=== PATIENT | female | born 1955 | race African-American/Black ===

== ENCOUNTER 2016-07-21 16:29 | Emergency (ER) | payer OTHER ==
[~2016-07-21] VITALS: Ht 162.6 cm; Wt 127.0 kg
[~2016-07-21 16:29] MED LIST: ALBUTEROL SULF8.5 GM INH; ALPRAZOLAM0.25 MG ORAL; AMBIEN10 M1 ORAL; AMBIEN5 MG ORAL; AMLODIPINE-BEN1 EACH PO; ATIVAN1 MG ORAL; ATIVAN1 MG PO; ATIVAN2 MG ORAL; ATORVASTATIN CA80 MG ORAL; BENAZEPRIL HCL10 MG ORAL; CIPRO500 MG PO; CIPROFLOXACIN500 M2 ORAL; COLACE100 MG ORAL; CYCLOBENZAPRINE10 MG ORAL; DICLOFENAC SODI75 MG ORAL; DIOVAN80 MG ORAL; DIPHENHYDRAMINE25 M1 ORAL; FEOSOL1 TAB; FLAGYL500 MG ORAL; FUROSEMIDE40 MG; FUROSEMIDE80 M1 ORAL; GUAIFENESIN-CO118 M1 ORAL; HYDROCODON-ACE1 EA15; HYDROCODON-ACE1 EA16; IBUPROFEN600 MG ORAL; KLOR-CON 88 MEQ PO; LASIX40 MG PO; LOTREL5 CAP/10 C ORAL; METFORMIN HCL500 M1 ORAL; METOPROLOL SUCC50 MG ORAL; METRONIDAZOLE500 MG ORAL; NAPROXEN500 M2; NKM; NORCO 5-325 TA1 EAC1 ORAL; NORCO 5-325 TA1 EACH ORAL; OMEPRAZOLE20 MG PO; OMEPRAZOLE40 M1 ORAL; PANTOPRAZOLE SO40 MG ORAL; PERCOCET 5-3251 EACH ORAL; PROMETHAZINE-D118 ML; PROZAC20 MG PO; RANITIDINE HCL150 MG ORAL; TRAMADOL HCL50 MG ORAL; TRAZODONE HCL50 MG ORAL; UNOBMED; ZITHROMAX250 MG ORAL; ZOFRAN ODT4 MG ORAL; ZOFRAN4 MG ORAL; ZOLPIDEM TARTRA10 MG
[2016-07-21] MEDS ORDERED: PROAIR HFA8.5 GM INH (17:13)
[2016-07-21] MEDS ORDERED: QVAR7.3 GM INH (17:13)
[2016-07-21] MEDS ORDERED: ALPRAZOLAM1 MG ORAL (17:13)
[2016-07-21] MEDS ORDERED: DICLOFENAC SODI50 MG ORAL (17:13)
[2016-07-21] MEDS ORDERED: Ketorolac 60mg Inj IM ONE (17:15)
[2016-07-21 17:30] VITALS: BP 152/109
--- NOTE | 2016-07-21 20:06 | Emergency Room Report ---
History of Present Illness General Chief Complaint: Pain Source: Patient Present Illness HPI 61 y/o female c/o medication refill. States she has anxiety which she takes Xanax 1mg with good compliance w/o AE. States she ran out of her medication and her anxiety has been getting worse. Additionally, patient complains of chronic bilateral knee pain that improves with Diclofenac which she takes with good compliance w/o AE and is asking for refills. Patient also states she was admitted for SOB 1 month ago and discharged with albuterol inhaler which she has had to use 5 times a week since being discharged. States she has not follow up with her PCP and that she takes BB for her HTN. Denies any active CP, SOB, n/ v/f/c, DAVISON, SI, HI, AH or VH. Allergies: Coded Allergies: NO KNOWN ALLERGIES (Unverified Allergy, Unknown, 11/01/15) Patient History Past Medical History: see triage record Pertinent Family History: none Now: No Immunizations: other Reviewed Nursing Documentation: PMH: Agreed, PSxH: Agreed Nursing Documentation-PMH Past Medical History: No History, Except For Hx Cardiac Problems: Yes - angina Hx Hypertension: Yes Hx Asthma: Yes Hx Diabetes: Yes Hx Cancer: No Hx Gastrointestinal Problems: Yes - diverticulitis Hx Neurological Problems: No Review of Systems All Other Systems: negative except mentioned in HPI Physical Exam Vital Signs Date Time Temp Pulse Resp B/P Pulse Ox O2 Delivery O2 Flow Rate FiO2 07/21/16 16:38 97.5 71 15 142/82 98 Room Air Sp02 EP Interpretation: reviewed General Appearance: no apparent distress, alert, GCS 15, non-toxic Head: normocephalic, atraumatic Eyes: bilateral eye PERRL, bilateral eye normal inspection ENT: hearing grossly normal, normal pharynx, no angioedema, normal voice Neck: full range of motion, supple/symm/no masses Respiratory: chest non-tender, lungs clear, normal breath sounds, speaking full sentences Cardiovascular #1: regular rate, rhythm, no edema Cardiovascular #2: 2+ dorsalis pedis (R), 2+ dorsalis pedis (L) Musculoskeletal: back normal, gait/station normal, normal range of motion, non- tender, no calf tenderness, calf tenderness Neurologic: alert, oriented x3, responsive, motor strength/tone normal, sensory intact, speech normal Psychiatric: judgement/insight normal, memory normal, mood/affect normal, no suicidal/homicidal ideation Reflexes: 3+ knee (R), 3+ knee (L) Skin: normal color, no rash, warm/dry, well hydrated Lymphatic: no adenopathy Medical Decision Making PA Attestation Dr. Grove is my supervising physician with whom patient management has been discussed with. Diagnostic Impression: Primary Impression: Asthma due to seasonal allergies Additional Impressions: Insomnia secondary to anxiety Chronic pain of both knees Depression with anxiety ER Course Pt. presents to the ED c/o medication refill Ddx considered but are not limited to chronic knee pain, asthma, anxiety with depression Vital signs: are WNL, pt. is afebrile H&PE are most consistent with chronic knee pain, asthma and anxiety with depression ORDERS: none required at this time, the diagnosis is clinical ED INTERVENTIONS: None required at this time. DISCHARGE: At this time pt. is stable for d/c to home. Will provide printed patient care instructions, and any necessary prescriptions. Care plan and follow up instructions have been discussed with the patient prior to discharge. Last Vital Signs Date Time Temp Pulse Resp B/P Pulse Ox O2 Delivery O2 Flow Rate FiO2 07/21/16 16:38 97.5 71 15 142/82 98 Room Air Status: unchanged Disposition: HOME, SELF-CARE Condition: Stable Scripts Alprazolam* (XANAX*) 1 Mg Tablet 1 MG ORAL QHS Y for For Anxiety for 10 Days, #10 TAB Prov: SABNOLA,TAMEEM P.A. 07/21/16 Beclomethasone Dipropionate 40MCG Oral Inh (QVAR 40*) 7.3 Gm Aer.w.adap 2 PUFFS INH TWICE A DAY for 30 Days, #1 GM 0 Refills Prov: SABRY,TAMEEM P.A. 07/21/16 Albuterol Sulfate* (PROAIR HFA*) 8.5 Gm Hfa.aer.ad 2 PUFFS INH Q6H, #8.5 GM 0 Refills Prov: SABRY,TAMEEM P.A. 07/21/16 Diclofenac Sod* (VOLTAREN*) 50 Mg Tablet.dr 50 MG ORAL THREE TIMES A DAY for 14 Days, #30 TAB Prov: SABRY,TAMEEM P.A. 07/21/16 Referrals: NON PHYSICIAN (PCP) JOE CHOE Jul 21, 2016 20:06
== END 2016-07-21 17:30 | disposition home or self-care (01) ==
LOC: EMR 17:00
DX: F32.9 Major depressive disorder, single episode, unspecified (principal); F51.05 Insomnia due to other mental disorder; F41.9 Anxiety disorder, unspecified; J45.909 Unspecified asthma, uncomplicated; G89.29 Other chronic pain; M25.562 Pain in left knee; M25.561 Pain in right knee; I10 Essential (primary) hypertension; E11.9 Type 2 diabetes mellitus without complications; K57.90 Diverticulosis of intestine, part unspecified, without perforation or abscess without bleeding
CPT/HCPCS: 96372; 99283

== ENCOUNTER 2017-01-15 13:39 | Emergency (ER) | payer OTHER ==
[~2017-01-15] VITALS: Ht 158.8 cm; Wt 136.1 kg
[~2017-01-15 13:39] MED LIST changes: +ALPRAZOLAM1 MG ORAL; +DICLOFENAC SODI50 MG ORAL; +PROAIR HFA8.5 GM INH; +QVAR7.3 GM INH
[2017-01-15] MEDS ORDERED: Furosemide 40mg tab ORAL ONE (14:30)
[2017-01-15] MEDS ORDERED: Ketorolac 30mg Inj IM ONE (14:30)
[2017-01-15] MEDS ORDERED: Morphine Sulfate 4mg/ml Inj IM ONE (14:30)
--- NOTE | 2017-01-15 14:33 | Emergency Room Report ---
History of Present Illness General Chief Complaint: General Complaint Source: Patient Present Illness HPI Patient is a 61-year-old female presented after increased lower extremity pain and swelling. Patient gradual onset of symptoms. Patient had reportedly have been poorly compliant with her diuretics. The patient had prior history of morbid obesity. Patient had been using Lasix intermittently as well as potassium. The patient stated that she had recently increased her weight. She denied any shortness of breath. She denied any chest pain. She denied having any fever. She reported increased pain worse with ambulation. Allergies: Coded Allergies: NO KNOWN ALLERGIES (Unverified Allergy, Unknown, 11/01/15) Patient History Past Medical History: see triage record Reviewed Nursing Documentation: PMH: Agreed, PSxH: Agreed Nursing Documentation-PMH Hx Cardiac Problems: Yes - angina Hx Hypertension: Yes Hx Asthma: Yes Hx Diabetes: Yes Hx Cancer: No Hx Gastrointestinal Problems: Yes - diverticulitis Hx Neurological Problems: No Review of Systems All Other Systems: negative except mentioned in HPI Physical Exam Vital Signs Date Time Temp Pulse Resp B/P Pulse Ox O2 Delivery O2 Flow Rate FiO2 01/15/17 14:07 97.5 89 18 156/106 96 Room Air Sp02 EP Interpretation: reviewed, normal General Appearance: normal inspection, well appearing, no apparent distress, alert, GCS 15, obese Head: atraumatic ENT: normal ENT inspection, hearing grossly normal, normal voice Neck: normal inspection, full range of motion, supple, no bony tend Respiratory: normal inspection, lungs clear, normal breath sounds, no respiratory distress, no retraction, no wheezing Cardiovascular #1: regular rate, rhythm, edema Gastrointestinal: normal inspection, normal bowel sounds, non tender, soft, no guarding, no hernia Genitourinary: no CVA tenderness Musculoskeletal: normal inspection, back normal, normal range of motion, decreased range of motion, swelling Neurologic: normal inspection, alert, oriented x3, responsive, bindery production manager III-XII nml as tested, motor strength/tone normal, speech normal Psychiatric: normal inspection, judgement/insight normal, mood/affect normal Skin: normal inspection, normal color, no rash Medical Decision Making Diagnostic Impression: Primary Impression: Chronic pain Additional Impressions: Chronic pain of both knees Morbid obesity ER Course Patient presented for knee pain. Differential diagnosis include but was not limited to arthritis, peripheral vascular disease, dependent edema, cellulitis among others. Patient's benign exam and does not appear to require any further imaging or laboratory testing at this time Last Vital Signs Date Time Temp Pulse Resp B/P Pulse Ox O2 Delivery O2 Flow Rate FiO2 01/15/17 14:07 97.5 89 18 156/106 96 Room Air Isidoro Grove Jan 15, 2017 14:32
[2017-01-15] MEDS ORDERED: FUROSEMIDE40 MG ORAL (15:18)
[2017-01-15 15:22] VITALS: BP 156/106
[2017-01-15] MEDS ORDERED: KLOR-CON 88 MEQ PO (15:23)
[2017-01-15 15:43] VITALS: BP 151/98
== END 2017-01-15 15:51 | disposition home or self-care (01) ==
LOC: EMR 14:40
DX: G89.29 Other chronic pain (principal); M25.562 Pain in left knee; M25.561 Pain in right knee; I10 Essential (primary) hypertension; J45.909 Unspecified asthma, uncomplicated; E11.9 Type 2 diabetes mellitus without complications; K57.90 Diverticulosis of intestine, part unspecified, without perforation or abscess without bleeding; E66.01 Morbid (severe) obesity due to excess calories; Z68.43 Body mass index [BMI] 50.0-59.9, adult
CPT/HCPCS: 96372; 99283; J1885; J2270

== ENCOUNTER 2017-01-23 21:59 | Emergency (ER) | payer OTHER ==
[~2017-01-23] VITALS: Ht 157.5 cm; Wt 131.5 kg
[~2017-01-23 21:59] MED LIST changes: +FUROSEMIDE40 MG ORAL
[2017-01-23] MEDS ORDERED: Morphine Sulfate 4mg/ml Inj IM ONE (22:45)
[2017-01-23] MEDS ORDERED: NORCO 5-325 TA1 EACH ORAL (22:49)
[2017-01-23] MEDS ORDERED: FUROSEMIDE40 MG ORAL (23:15)
[2017-01-23 23:24] VITALS: BP 155/70
--- NOTE | 2017-01-26 19:20 | Emergency Room Report ---
History of Present Illness General Chief Complaint: Pain Source: Patient Present Illness HPI 61-year-old female presents ED complaining of bilateral leg pain and swelling of one week. Patient states she has history of peripheral edema and takes Lasix. Admits to taking medication inconsistently. Patient states pain is 10 out of 10, throbbing, radiating down both legs. Denies chest pain or shortness of breath. Patient states she is unable to walk however patient did walk into the emergency room today. No other aggravating relieving factors. Denies any other specific symptoms Allergies: Coded Allergies: NO KNOWN ALLERGIES (Unverified Allergy, Unknown, 11/01/15) Patient History Past Medical History: DM, HTN, asthma, diverticulitis Past Surgical History: none Pertinent Family History: none Social History: Denies: alcohol use, drug use, smoking Last Menstrual Period: NONE Now: No Immunizations: UTD Reviewed Nursing Documentation: PMH: Agreed, PSxH: Agreed Nursing Documentation-PMH Hx Hypertension: Yes Hx Asthma: Yes Hx Diabetes: Yes Hx Cancer: No Hx Gastrointestinal Problems: Yes - diverticulitis Hx Neurological Problems: No Review of Systems All Other Systems: negative except mentioned in HPI Physical Exam Vital Signs Date Time Temp Pulse Resp B/P Pulse Ox O2 Delivery O2 Flow Rate FiO2 01/23/17 22:12 98.1 101 20 153/76 97 Room Air Sp02 EP Interpretation: reviewed, normal General Appearance: no apparent distress, alert, GCS 15, non-toxic, obese Head: normocephalic Eyes: bilateral eye PERRL, bilateral eye normal inspection ENT: normal ENT inspection Neck: normal inspection Respiratory: normal inspection Cardiovascular #1: normal inspection Gastrointestinal: normal inspection Rectal: deferred Genitourinary: no CVA tenderness Musculoskeletal: swelling - 1+ pitting edema b/l LE Neurologic: alert, oriented x3, responsive, motor strength/tone normal, sensory intact, speech normal Skin: normal inspection Lymphatic: normal inspection Medical Decision Making Diagnostic Impression: Primary Impression: Peripheral edema Additional Impression: Chronic pain Qualified Codes: G89.29 - Other chronic pain ER Course 61-year-old female presents ED complaining of bilateral leg pain and swelling. Diagnoses-CHF, peripheral edema, cellulitis Patient placed in stretcher. After initial history physical exam reveals an obese female no acute distress. There is 1+ pitting edema in bilateral lower extremities. Lungs are clear. Patient is showing no signs of shortness of breath. Vital stable. Reviewed EMR. Patient has been here in the past for similar presentation of peripheral edema, noncompliant with her Lasix Encouraged patient to continue Lasix as directed. Followup with PMD if dosing adjustments are required. I offered patient pain medication. Patient stated only Dilaudid will take care of this pain. Given chronicity of pain I do not believe Dilaudid is warranted, given the situation. I explained this to the patient. Patient became very upset. I offered the patient morphine which she accepted. Patient will get a refill of her Lasix which she says she does not have In review of CURES; patient does not have any narcotic prescriptions filled in the last several months Diagnosis-peripheral edema, chronic pain Stable and discharged to home prescription for Lasix and [place]. Followup with PMD. Return to ED if symptoms recur or worsen Last Vital Signs Date Time Temp Pulse Resp B/P Pulse Ox O2 Delivery O2 Flow Rate FiO2 01/23/17 23:24 98.1 90 20 155/70 97 Room Air Status: improved Disposition: HOME, SELF-CARE Condition: Stable Scripts Furosemide* (LASIX*) 40 Mg Tablet 40 MG ORAL DAILY, #30 TAB Prov: PRAVEEN MARIE M.D. 01/23/17 Hydrocodone Bit/Acetaminophen 5-325* (NORCO 5-325*) 1 Each Tablet 1 TAB ORAL Q6H Y for For Pain, #10 TAB 0 Refills Prov: PRAVEEN MARIE M.D. 01/23/17 Patient Instructions: Peripheral Edema PRAVEEN MARIE M.D. Jan 26, 2017 19:20
== END 2017-01-23 23:29 | disposition home or self-care (01) ==
LOC: EMR 22:24
DX: R60.0 Localized edema (principal); G89.29 Other chronic pain; M79.605 Pain in left leg; M79.604 Pain in right leg; I10 Essential (primary) hypertension; E11.9 Type 2 diabetes mellitus without complications; J45.909 Unspecified asthma, uncomplicated
CPT/HCPCS: 96372; 99284; J2270

== ENCOUNTER 2017-04-13 14:28 | Emergency (ER) | payer OTHER ==
[~2017-04-13] VITALS: Ht 162.6 cm; Wt 130.6 kg
--- NOTE | 2017-04-13 14:55 | Emergency Room Report ---
History of Present Illness General Chief Complaint: Lower Extremity Injury Source: Patient, EMS Present Illness HPI -year-old female history of hypertension diabetes chronic knee pain, presenting with bilateral knee pain for 3 days. Patient states that pain has become a lot worse, now causing her to fall on her knees. Denies any head trauma or LOC. Patient states that she has chronic swelling to legs, takes 80 mg of Lasix, which she skipped a few doses. Patient states that she was using [place] for pain , but has run out. Patient has not seen a pain specialist Patient was here for similar complaints in January Allergies: Coded Allergies: NO KNOWN ALLERGIES (Unverified Allergy, Unknown, 11/01/15) Patient History Past Medical History: see triage record Past Surgical History: none Pertinent Family History: none Last Menstrual Period: na Reviewed Nursing Documentation: PMH: Agreed, PSxH: Agreed Nursing Documentation-PMH Past Medical History: No History, Except For Hx Hypertension: Yes Hx Asthma: Yes Hx Diabetes: Yes Hx Cancer: No Hx Gastrointestinal Problems: Yes - diverticulitis Hx Neurological Problems: No Review of Systems All Other Systems: negative except mentioned in HPI Physical Exam Vital Signs Date Time Temp Pulse Resp B/P (MAP) Pulse Ox O2 Delivery O2 Flow Rate FiO2 04/13/17 14:23 98.4 73 18 181/91 98 Room Air Sp02 EP Interpretation: reviewed, normal General Appearance: normal inspection, well appearing, no apparent distress, alert, GCS 15, non-toxic Head: normocephalic, atraumatic Eyes: bilateral eye normal inspection, bilateral eye PERRL, bilateral eye EOMI ENT: normal ENT inspection, normal pharynx, normal voice, moist mucus membranes Neck: normal inspection, full range of motion, supple Respiratory: normal inspection, lungs clear, normal breath sounds, no respiratory distress, no retraction, no wheezing, speaking full sentences, chest symmetrical Cardiovascular #1: normal inspection, regular rate, rhythm, no edema, normal capillary refill Cardiovascular #2: 2+ radial (R), 2+ radial (L) Gastrointestinal: normal inspection, non tender, soft, non-distended, no guarding Musculoskeletal: other - Bilateral knee tenderness, no gross bony deformities, no effusion, no redness, full range of passive motion, 2+ pitting edema. no calf tenderness Neurologic: normal inspection, alert, oriented x3, responsive, motor strength/ tone normal, sensory intact, normal gait, speech normal Psychiatric: normal inspection, judgement/insight normal, memory normal Skin: normal inspection, normal color, no rash, warm/dry, well hydrated, normal turgor Medical Decision Making Diagnostic Impression: Primary Impression: Chronic pain of both knees ER Course 51-year-old female with chronic knee pain presenting with chronic knee pain. DDX: Arthritis, low suspicion for fracture Plan: Pain control, x-rays ER course: Patient has remained stable during ED stay. Disposition: Patient is to be discharged to home. Patient is instructed to follow up with their primary care doctor within 5 days. Patient is instructed to follow up with [ ] within 3 days. Strict return precautions discussed with patient such as fever, chills, worsening/severe pain, nausea, vomiting, which may indicate severe illness. Patient verbalizes understanding and agrees with plan. Please note that this Emergency Department Report was dictated using [employer] rental technician technology software, occasionally this can lead to erroneous entry secondary to interpretation by the dictation equipment Other X-Ray Diagnostic Results Other X-Ray Diagnostic Results #1: X-Ray ordered: R knee # of Views/Limited Vs Complete: 3 View Indication: Pain EP Interpretation: Yes Interpretation: no dislocation, no soft tissue swelling, no fractures, other - +chronic degen changes Impression: Other - Chronic degenerative changes Electronically Signed by: Electronically signed by Tatianna Leon MD Other X-Ray Diagnostic Results #2: X-Ray ordered: L knee # of Views/Limited Vs Complete: 3 View Indication: Pain Interpretation: no dislocation, no soft tissue swelling Impression: Other - Chronic degenerative changes Electronically Signed by: Electronically signed by Tatianna Leon MD Last Vital Signs Date Time Temp Pulse Resp B/P (MAP) Pulse Ox O2 Delivery O2 Flow Rate FiO2 04/13/17 14:23 98.4 73 18 181/91 98 Room Air Disposition: HOME, SELF-CARE Condition: Improved Scripts Ibuprofen* (MOTRIN*) 600 Mg Tablet 600 MG ORAL Q8H Y for For Pain, #30 TAB 0 Refills Prov: Tatianna Leon M.D. 04/13/17 Hydrocodone Bit/Acetaminophen 5-325* (NORCO 5-325*) 1 Each Tablet 1 TAB ORAL Q4H Y for For Pain, #6 TAB 0 Refills Prov: Tatianna Leon M.D. 04/13/17 Additional Instructions: Please followup with her primary care within 5 days Please followup with a pain specialist within one week Tatianna Leon M.D. Apr 13, 2017 14:55
[2017-04-13] MEDS ORDERED: NORCO 5-325 TA1 EACH ORAL (15:42)
[2017-04-13] MEDS ORDERED: IBUPROFEN600 MG ORAL (15:42)
[2017-04-13 15:57] VITALS: BP 129/93
[2017-04-13 16:15] VITALS: BP 129/93
--- NOTE | 2017-04-14 11:01 | Diagnostic Imaging Report ---
Indication: Pain 3 views of the right knee were obtained. Findings: There is narrowing of the medial compartment and patellofemoral compartment with osteophyte formation. No fracture distally seen. No joint effusion appreciated. Impression: Moderate osteoarthritis
--- NOTE | 2017-04-14 11:03 | Diagnostic Imaging Report ---
Indication: Pain 3 views of the left knee were obtained. Findings: There is joint space narrowing with osteophyte formation. No obvious fracture or joint effusion identified. The views are suboptimal. Bones are osteopenic. Impression: Osteoarthritis
== END 2017-04-13 16:24 | disposition home or self-care (01) ==
LOC: EDBD 14:28 → EMR 14:55
DX: M17.0 Bilateral primary osteoarthritis of knee (principal); I10 Essential (primary) hypertension; J45.909 Unspecified asthma, uncomplicated; E11.9 Type 2 diabetes mellitus without complications
CPT/HCPCS: 99284

== ENCOUNTER 2017-07-01 14:19 | Emergency (ER) | payer OTHER ==
[~2017-07-01] VITALS: Ht 162.6 cm; Wt 128.4 kg
--- NOTE | 2017-07-01 14:32 | Emergency Room Report ---
History of Present Illness General Chief Complaint: Chest Pain Source: Patient Present Illness HPI 62-year-old female presents with chest pain and last night Left side, worse with walking, worse with movement History of CHF, compliant with Lasix denies recent URI, cough, fever or chills No history of asthma or COPD, nonsmoker Didn't take any medication for pain Jun 2016 test: CTA negative for PE EF 64% Allergies: Coded Allergies: NO KNOWN ALLERGIES (Unverified Allergy, Unknown, 11/01/15) Patient History Past Medical History: see triage record, old chart reviewed Past Surgical History: none Pertinent Family History: none Social History: Denies: smoking, alcohol use, drug use Last Menstrual Period: menopause Now: No Immunizations: UTD Reviewed Nursing Documentation: PMH: Agreed, PSxH: Agreed Nursing Documentation-PMH Past Medical History: No History, Except For Hx Hypertension: Yes Hx Asthma: Yes Hx Diabetes: Yes Hx Cancer: No Hx Gastrointestinal Problems: Yes - diverticulitis Hx Neurological Problems: No Review of Systems All Other Systems: negative except mentioned in HPI Physical Exam Vital Signs Date Time Temp Pulse Resp B/P (MAP) Pulse Ox O2 Delivery O2 Flow Rate FiO2 07/01/17 14:28 97.9 74 21 170/93 98 Room Air Sp02 EP Interpretation: reviewed, normal General Appearance: normal inspection, well appearing, no apparent distress, alert, GCS 15, non-toxic, obese Head: normocephalic, atraumatic Eyes: bilateral eye PERRL, bilateral eye EOMI ENT: normal ENT inspection, hearing grossly normal, normal pharynx, no angioedema, normal voice, TMs + canals normal, uvula midline, moist mucus membranes Neck: normal inspection, full range of motion, supple, thyroid normal, no meningismus, no bony tend Respiratory: normal inspection, lungs clear, normal breath sounds, no rhonchi, no respiratory distress, no retraction, no accessory muscle use, no wheezing, speaking full sentences, other - Reproducible chest pain to palpation, chest symmetrical Cardiovascular #1: regular rate, rhythm, no edema, no JVD, normal capillary refill Gastrointestinal: normal inspection, normal bowel sounds, non tender, soft, no mass, no peritonitis, non-distended, no guarding, no hernia, no pulsatile mass Genitourinary: no CVA tenderness Musculoskeletal: normal inspection, back normal, normal range of motion, no calf tenderness, pelvis stable, Theresa's Sign negative Neurologic: normal inspection, alert, oriented x3, responsive, stock layer III-XII nml as tested, motor strength/tone normal, cerebellar normal, normal gait, speech normal Psychiatric: normal inspection, judgement/insight normal, mood/affect normal, no suicidal/homicidal ideation, no delusions Skin: normal inspection, normal color, no rash Lymphatic: normal inspection, no adenopathy Medical Decision Making Diagnostic Impression: Primary Impression: Chest pain Qualified Codes: R07.9 - Chest pain, unspecified ER Course Chest x-ray unchanged from June 2016 troponin 0.248 ECG non ischemic given aspirin in ER Endorsed to Dr Mccormack for tele admit for ACS rule out at 509pm EKG Diagnostic Results Rate: normal Rhythm: NSR ST Segments: no acute changes ASA given to the pt in ED: Yes Rhythm Strip Diag. Results EP Interpretation: yes Rate: 71 Rhythm: NSR, no PVC's, no ectopy Chest X-Ray Diagnostic Results Chest X-Ray Diagnostic Results : Chest X-Ray Ordered: Yes # of Views/Limited/Complete: 1 View Indication: Chest Pain EP Interpretation: Yes Interpretation: no consolidation, no effusion, no pneumothorax, other - Cardiomegaly Electronically Signed by: Dr Sheyla Tracey MD Last Vital Signs Date Time Temp Pulse Resp B/P (MAP) Pulse Ox O2 Delivery O2 Flow Rate FiO2 07/01/17 14:28 97.9 74 21 170/93 98 Room Air Status: improved Disposition: ADMITTED INPATIENT Condition: Serious SHEYLA TRACEY M.D. Jul 01, 2017 14:32
[2017-07-01 15:25] LABS: BASOPHILS % (AUTO) 1.3 % (0.0-2.0); EOSINOPHILS % (AUTO) 1.8 % (0.0-3.0); LYMPHOCYTES % (AUTO) 39.5 % (20.0-45.0); MEAN CORPUSCULAR HEMOGLOBIN 27.7 PG (27.0-31.0); MEAN CORPUSCULAR HGB CONC 30.8 G/DL (32.0-36.0); MEAN CORPUSCULAR VOLUME 90 FL (80-99); MEAN PLATELET VOLUME 7.9 FL (6.5-10.1); MONOCYTES % (AUTO) 7.8 % (1.0-10.0); NEUTROPHILS % (AUTO) 49.6 % (45.0-75.0); PLATELET COUNT 334 K/UL (150-450); RED CELL DISTRIBUTION WIDTH 16.1 % (11.6-14.8); WHITE BLOOD COUNT 10.6 K/UL (4.8-10.8)
[2017-07-01 15:30] VITALS: BP 166/87
[2017-07-01 15:46] LABS: ANION GAP 7 mmol/L (5-15); CALCIUM 9.4 MG/DL (8.5-10.1); CARBON DIOXIDE 29 MMOL/L (21-32); CHLORIDE 104 MMOL/L (98-107); GLOMERULAR FILTRATION RATE > 60 mL/min (>60); POTASSIUM 3.9 MMOL/L (3.5-5.1); SODIUM 140 MMOL/L (136-145)
[2017-07-01 15:55] LABS: ALANINE AMINOTRANSFERASE 19 U/L (12-78); ALBUMIN/GLOBULIN RATIO 0.8 (1.0-2.7); ASPARTATE AMINO TRANSFERASE 16 U/L (15-37); CKMB 1.3 NG/ML (0.0-3.6); TOTAL PROTEIN 8.3 G/DL (6.4-8.2)
[2017-07-01] MEDS ORDERED: Tylenol #3 tab (300mg/30mg) ORAL ONE (16:15)
--- NOTE | 2017-07-01 17:24 | Diagnostic Imaging Report ---
Indication: Reason For Exam: PAIN Technique: One view of the chest Comparison: 06/20/2016 Findings: The heart remains enlarged. Better inspiration currently. The lungs and pleural spaces are clear Impression: Cardiomegaly. No acute process
[2017-07-01 18:00] VITALS: BP 189/97
[2017-07-01] MEDS ORDERED: Norco 5mg/325mg tab ORAL ONE (18:15)
[2017-07-01] MEDS ORDERED: CALCIUM500 M2 PO (18:18)
[2017-07-01] MEDS ORDERED: DICLOFENAC SODI50 MG ORAL (18:18)
[2017-07-01] MEDS ORDERED: VENTOLIN HFA18 GM INH ×2 (18:18→18:19)
[2017-07-01] MEDS ORDERED: Ketorolac 30mg Inj ONE (19:33)
[2017-07-01 19:41] VITALS: BP 189/97
[2017-07-01] MEDS ORDERED: Ketorolac 30mg Inj IV ONE (19:45)
--- NOTE | 2017-07-02 16:59 | Cardiology Report ---
APPROVED REPORT EKG Measurement Heart [id number] Normal sinus rhythm Anterior infarct, age undetermined Abnormal ECG
== END 2017-07-01 19:41 | disposition home or self-care (01) ==
LOC: EMR 15:00 → EDBEDREQ 16:25 → EMR 19:41
DX: I11.0 Hypertensive heart disease with heart failure (principal); I50.9 Heart failure, unspecified; Z79.899 Other long term (current) drug therapy; E11.9 Type 2 diabetes mellitus without complications; J45.909 Unspecified asthma, uncomplicated
CPT/HCPCS: 36415; 71010; 80053; 80307; 82550; 82553; 83880; 84484; 85025; 93005; 99285; J1885

== ENCOUNTER 2017-07-31 11:42 | Emergency (ER) | payer OTHER ==
[~2017-07-31] VITALS: Ht 157.5 cm; Wt 130.6 kg
[2017-07-31 11:41] VITALS: BP 182/101
[~2017-07-31 11:42] MED LIST changes: +CALCIUM500 M2 PO; +VENTOLIN HFA18 GM INH
[2017-07-31] MEDS ORDERED: Solu-MEDROL 125mg Inj IVP ONE (12:00)
[2017-07-31] MEDS ORDERED: Ipratropium 0.02% Inh Soln 2.5ml UD HHN ONE (12:00)
[2017-07-31] MEDS: Albuterol ud Inhalation HHN SCH ×6 (12:03→13:03)
[2017-07-31 12:37] LABS: BASOPHILS % (AUTO) 1.4 % (0.0-2.0); HEMATOCRIT 35.5 % (37.0-47.0); HEMOGLOBIN 10.8 G/DL (12.0-16.0); MEAN CORPUSCULAR VOLUME 88 FL (80-99); MONOCYTES % (AUTO) 4.7 % (1.0-10.0); NEUTROPHILS % (AUTO) 38.9 % (45.0-75.0); PLATELET COUNT 276 K/UL (150-450); RED BLOOD COUNT 4.04 M/UL (4.20-5.40); RED CELL DISTRIBUTION WIDTH 15.3 % (11.6-14.8); WHITE BLOOD COUNT 13.7 K/UL (4.8-10.8)
--- NOTE | 2017-07-31 12:43 | Emergency Room Report ---
History of Present Illness General Chief Complaint: Dyspnea/Respdistress Source: Patient, EMS Present Illness HPI 62-year-old female with history of asthma, p/w SOB for 2-3 days. SOB occurs both at rest and on exertion. + non productive cough. Denies chest pain. Pt states that this episode is similar to other episodes of asthma exacerbation. Denies fever, chills. Denies sick contacts or recent travel. Patient denies history of ICU admissions, intubations, or usage of BIPAP for asthma. Denies history of PE/DVT, no recent surgeries, prolonged immobilization, malignancy, or use of OCPs/HRT. Allergies: Coded Allergies: No Known Allergies (Unverified , 07/31/17) Patient History Past Medical History: see triage record Past Surgical History: none Pertinent Family History: none Reviewed Nursing Documentation: PMH: Agreed, PSxH: Agreed Nursing Documentation-PMH Past Medical History: No History, Except For Hx Hypertension: Yes Hx COPD: Yes Review of Systems All Other Systems: negative except mentioned in HPI Physical Exam Vital Signs Date Time Temp Pulse Resp B/P (MAP) Pulse Ox O2 Delivery O2 Flow Rate FiO2 07/31/17 11:37 86 32 07/31/17 11:37 97.0 182/101 92 Nasal Cannula 2.0 07/31/17 12:08 28 Sp02 EP Interpretation: reviewed, normal General Appearance: alert, GCS 15, non-toxic, moderate distress Head: normocephalic, atraumatic Eyes: bilateral eye normal inspection, bilateral eye PERRL, bilateral eye EOMI ENT: normal ENT inspection, normal pharynx, normal voice, moist mucus membranes Neck: normal inspection, full range of motion, supple Respiratory: respiratory distress, wheezing Cardiovascular #1: normal inspection, regular rate, rhythm, no edema, normal capillary refill Cardiovascular #2: 2+ radial (R), 2+ radial (L) Gastrointestinal: normal inspection, non tender, soft, non-distended, no guarding Musculoskeletal: normal inspection, back normal, normal range of motion, non- tender Neurologic: normal inspection, alert, oriented x3, responsive, motor strength/ tone normal, sensory intact, normal gait, speech normal Psychiatric: normal inspection, judgement/insight normal, memory normal Skin: normal inspection, normal color, no rash, warm/dry, well hydrated, normal turgor Procedures Critical Care Time Critical Care Time 40 minutes of CC time 62-year-old female with shortness of breath VS: Tachypnea, hypoxic PLAN: IV access, labs, nebulizer, steroids, magnesium Anticipate admission to Tele vs. JG CC time also includes review of labs, review of EMR, discussion with family and paperwork from SNF, d/w hospitalist CC could include dosing of pressors, additional Abx CC time does not include procedures Medical Decision Making Diagnostic Impression: Primary Impression: Asthma exacerbation Additional Impressions: Pneumonia CHF (congestive heart failure) Elevated troponin ER Course 62-year-old female with history of asthma p/w SOB DDX: Asthma exacerbation, pneumonia, upper respiratory infection/viral syndrome Versus ACS/CHF PE is unlikely given other likely diagnoses which is more likely in this patients given clinical scenario and physical examination. Furthermore, there is no history of DVT/PE. No risk factors such as OCPs, prolonged immobilizations , recent surgeries, hypercoagulability. Plan: Combivent nebulizer treatment x 3, steroids, EKG, CXR If patient's condition minimally improves/worsens will require IV access and blood work. Possible IV medications such as magnesium sulfate, continuous albuterol, BIPAP. ER Course: Patient's respiratory status has been closely monitored in the ED. Patient has been treated with combivent x 3, steroids. IV magnesium sulfate Repeat lung auscultation reveals persistent wheezing. mildly elevated trop - likely from CHF. aspirin given 40mg lasix given for chf Disposition: Patient will be transferred to outside hospital due to insurance purposes she is stable for transfer DW Dr Alfonso who has accepted patient for xfer Please note that this Emergency Department Report was dictated using [employer] rock taper technology software, occasionally this can lead to erroneous entry secondary to interpretation by the dictation equipment. EKG Diagnostic Results EP Interpretation: Yes Rate: normal Rhythm: NSR ST Segments: No acute changes ASA given to patient: No Rhythm Strip EP Interpretation: Yes Rate: 70 Rhythm: NSR, no PVCs, no ectopy Chest X-ray CXR: Ordered: Yes 1 view Indication: SOB EP interpretation: Yes Interpretation: Cardiomegaly, cannot fully evaluate lung bases, possible right- sided infiltrate versus pulmonary vascular congestion Impression: See above Electronically signed by Tatianna Leon MD Laboratory Tests Test 07/31/17 12:15 07/31/17 12:47 07/31/17 13:10 White Blood Count 13.7 K/UL (4.8-10.8) H Red Blood Count 4.04 M/UL (4.20-5.40) L Hemoglobin 10.8 G/DL (12.0-16.0) L Hematocrit 35.5 % (37.0-47.0) L Mean Corpuscular Volume 88 FL (80-99) Mean Corpuscular Hemoglobin 26.8 PG (27.0-31.0) L Mean Corpuscular Hemoglobin Concent 30.6 G/DL (32.0-36.0) L Red Cell Distribution Width 15.3 % (11.6-14.8) H Platelet Count 276 K/UL (150-450) Mean Platelet Volume 8.8 FL (6.5-10.1) Neutrophils (%) (Auto) 38.9 % (45.0-75.0) L Lymphocytes (%) (Auto) 53.0 % (20.0-45.0) H Monocytes (%) (Auto) 4.7 % (1.0-10.0) Eosinophils (%) (Auto) 2.0 % (0.0-3.0) Basophils (%) (Auto) 1.4 % (0.0-2.0) Urine Color Yellow Urine Appearance Clear Urine pH 6 (4.5-8.0) Urine Specific [place] 1.015 (1.005-1.035) Urine Protein 2+ (NEGATIVE) H Urine Glucose (UA) Negative (NEGATIVE) Urine Ketones Negative (NEGATIVE) Urine Occult Blood 1+ (NEGATIVE) H Urine Nitrite Negative (NEGATIVE) Urine Bilirubin Negative (NEGATIVE) Urine Urobilinogen Normal MG/DL (0.0-1.0) Urine Leukocyte Esterase Negative (NEGATIVE) Urine RBC 0-2 /HPF (0 - 2) Urine WBC 0-2 /HPF (0 - 2) Urine Squamous Epithelial Cells Few /LPF (NONE/OCC) Urine Bacteria Few /HPF (NONE) Sodium Level 140 MMOL/L (136-145) Potassium Level 3.8 MMOL/L (3.5-5.1) Chloride Level 104 MMOL/L (98-107) Carbon Dioxide Level 31 MMOL/L (21-32) Anion Gap 6 mmol/L (5-15) Blood Urea Nitrogen 16 mg/dL (7-18) Creatinine 1.0 MG/DL (0.55-1.30) Estimate Glomerular Filtration Rate > 60 mL/min (>60) Glucose Level 138 MG/DL (74-106) H Calcium Level 9.4 MG/DL (8.5-10.1) Total Bilirubin 0.5 MG/DL (0.2-1.0) Aspartate Amino Transferase (AST) 22 U/L (15-37) Alanine Aminotransferase (ALT) 25 U/L (12-78) Alkaline Phosphatase 97 U/L (46-116) Troponin I 0.269 ng/mL (0.000-0.056) Pro-B-Type Natriuretic Peptide 1793 pg/mL (0-125) H Total Protein 7.9 G/DL (6.4-8.2) Albumin 3.4 G/DL (3.4-5.0) Globulin 4.5 g/dL Albumin/Globulin Ratio 0.8 (1.0-2.7) L Last Vital Signs Date Time Temp Pulse Resp B/P (MAP) Pulse Ox O2 Delivery O2 Flow Rate FiO2 07/31/17 12:39 86 26 100 Nasal Cannula 2.0 28 07/31/17 11:41 182/101 07/31/17 11:37 97.0 Disposition: XFER SHT-TRM HOSP Condition: Serious Scripts Unable to Obtain Active Prescriptions or Reported Meds Referrals: [facility],REFERRING (PCP) Tatianna Leon M.D. Jul 31, 2017 12:43
[2017-07-31 13:00] VITALS: BP 144/71
[2017-07-31 13:02] LABS: APPEARANCE,URINE CLEAR; BILIRUBIN, URINE NEGATIVE (NEGATIVE); COLOR,URINE YELLOW; GLUCOSE, URINE (UA) NEGATIVE (NEGATIVE); KETONES,URINE NEGATIVE (NEGATIVE); LEUKOCYTE ESTERASE ,URINE NEGATIVE (NEGATIVE); NITRITE,URINE NEGATIVE (NEGATIVE); PH,URINE 6 (4.5-8.0); PROTEIN,URINE 2+ (NEGATIVE); UROBILINOGEN,URINE NORMAL MG/DL (0.0-1.0)
[2017-07-31] MEDS ORDERED: Azithromycin 500 MG in D5W 275 ML IVPB ONE (13:30)
--- NOTE | 2017-07-31 13:37 | Diagnostic Imaging Report ---
Indication: Dyspnea Comparison: None A single view chest radiograph was obtained. Findings: Vascular prominence, hazy margins and cardiomegaly are demonstrated. Hint of interstitial edema at the lung bases. Bones are osteopenic. IMPRESSION: Suspected interstitial edema/CHF
[2017-07-31 13:43] LABS: ANION GAP 6 mmol/L (5-15); BLOOD UREA NITROGEN 16 mg/dL (7-18); CALCIUM 9.4 MG/DL (8.5-10.1); CARBON DIOXIDE 31 MMOL/L (21-32); CHLORIDE 104 MMOL/L (98-107); POTASSIUM 3.8 MMOL/L (3.5-5.1); SODIUM 140 MMOL/L (136-145)
[2017-07-31] MEDS ORDERED: Morphine Sulfate 4mg/ml Inj IVP ONE (13:45)
[2017-07-31 13:54] LABS: ALANINE AMINOTRANSFERASE 25 U/L (12-78); ALBUMIN 3.4 G/DL (3.4-5.0); ALBUMIN/GLOBULIN RATIO 0.8 (1.0-2.7); ALKALINE PHOSPHATASE 97 U/L (46-116); ASPARTATE AMINO TRANSFERASE 22 U/L (15-37); BILIRUBIN,TOTAL 0.5 MG/DL (0.2-1.0)
[2017-07-31 14:41] VITALS: BP 166/89
[2017-07-31 14:54] VITALS: BP 166/69
--- NOTE | 2017-08-02 08:18 | Cardiology Report ---
APPROVED REPORT EKG Measurement Heart [id number] Normal sinus rhythm Normal ECG
== END 2017-07-31 14:54 | disposition short-term general hospital (02) ==
LOC: EDBD 11:42 → MERGE 12:05 → EMR 12:05
DX: J45.901 Unspecified asthma with (acute) exacerbation (principal); I11.0 Hypertensive heart disease with heart failure; I50.9 Heart failure, unspecified
CPT/HCPCS: 36415; 71045; 80053; 81003; 83880; 84484; 85025; 93005; 94640; 96365; 96375; 99291; J1940; J2270; J2930

== ENCOUNTER 2017-09-16 10:48 | Emergency (ER) | payer OTHER ==
[~2017-09-16] VITALS: Ht 157.5 cm; Wt 127.0 kg
[2017-09-16] MEDS ORDERED: Albuterol/Ipratropium 3ml neb HHN ONE (11:00)
[2017-09-16 11:20] VITALS: BP 188/112
[2017-09-16 11:36] LABS: BASOPHILS % (AUTO) 1.5 % (0.0-2.0); EOSINOPHILS % (AUTO) 3.1 % (0.0-3.0); HEMATOCRIT 33.7 % (37.0-47.0); HEMOGLOBIN 10.5 G/DL (12.0-16.0); LYMPHOCYTES % (AUTO) 46.6 % (20.0-45.0); MEAN CORPUSCULAR VOLUME 88 FL (80-99); MONOCYTES % (AUTO) 4.5 % (1.0-10.0); NEUTROPHILS % (AUTO) 44.3 % (45.0-75.0); PLATELET COUNT 308 K/UL (150-450); RED BLOOD COUNT 3.81 M/UL (4.20-5.40); RED CELL DISTRIBUTION WIDTH 16.3 % (11.6-14.8); WHITE BLOOD COUNT 9.9 K/UL (4.8-10.8)
[2017-09-16 11:46] VITALS: BP 181/84
[2017-09-16 11:48] LABS: ANION GAP 8 mmol/L (5-15); BLOOD UREA NITROGEN 15 mg/dL (7-18); CALCIUM 9.3 MG/DL (8.5-10.1); CARBON DIOXIDE 30 MMOL/L (21-32); CHLORIDE 102 MMOL/L (98-107); CREATININE 0.8 MG/DL (0.55-1.30); POTASSIUM 3.6 MMOL/L (3.5-5.1); SODIUM 140 MMOL/L (136-145)
[2017-09-16 12:01] LABS: ALANINE AMINOTRANSFERASE 27 U/L (12-78); ALBUMIN 3.4 G/DL (3.4-5.0); ALBUMIN/GLOBULIN RATIO 0.8 (1.0-2.7); ALKALINE PHOSPHATASE 106 U/L (46-116); ASPARTATE AMINO TRANSFERASE 25 U/L (15-37); BILIRUBIN,TOTAL 0.5 MG/DL (0.2-1.0); CKMB 1.6 NG/ML (0.0-3.6); CREATINE KINASE 131 U/L (26-308)
--- NOTE | 2017-09-16 12:12 | Emergency Room Report ---
History of Present Illness General Chief Complaint: Chest Pain Source: Patient Present Illness HPI Patient is a 62-year-old female presented after increased chest pain. Patient poorly had a recent argument with a family member. Pain is described as a tight sensation. She denied any cough. Patient had prior history of CHF as well as lung disease. She reported having increased leg swelling read onset over the past few days. Patient had increased shortness of breath with exertion. She has previously been taking diuretics. She denied taking medications for this currently Allergies: Coded Allergies: NO KNOWN ALLERGIES (Unverified Allergy, Unknown, 11/01/15) Patient History Last Menstrual Period: Post Reviewed Nursing Documentation: PMH: Agreed, PSxH: Agreed Nursing Documentation-PMH Hx Hypertension: Yes Hx Asthma: Yes Hx Diabetes: Yes Hx Cancer: No Hx Gastrointestinal Problems: Yes - Diverticulitis Hx Neurological Problems: No Review of Systems All Other Systems: negative except mentioned in HPI Physical Exam Vital Signs Date Time Temp Pulse Resp B/P (MAP) Pulse Ox O2 Delivery O2 Flow Rate FiO2 09/16/17 10:47 98.7 74 14 199/92 92 Room Air 98.8 09/16/17 11:20 1.0 09/16/17 12:07 28 Sp02 EP Interpretation: reviewed, normal General Appearance: normal inspection, no apparent distress, alert, obese, Chronically Ill Head: atraumatic ENT: normal ENT inspection, hearing grossly normal, normal voice Neck: normal inspection, full range of motion, supple, no bony tend Respiratory: normal inspection, no respiratory distress, no retraction, wheezing Cardiovascular #1: regular rate, rhythm, edema - 3+ Gastrointestinal: normal inspection, normal bowel sounds, non tender, soft, no guarding, no hernia Genitourinary: no CVA tenderness Musculoskeletal: normal inspection, back normal, normal range of motion Neurologic: normal inspection, alert, oriented x3, responsive, 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 Differential included but was not limited to anemia, pneumonia, pneumothorax, myocardial infarction, pericardial effusion, congestive heart failure, acidosis. Because of complexity of patient' s case laboratory testing and imaging studies were ordered.Patient is given breathing treatments as well as IV Lasix. Patient did have improvement however continued to be somewhat short of breath. Laboratory testing was notable for negative troponin as well as elevated B type natural peptide.The patient was discussed with Dr. Alfonso who agreed to accept the patient in transfer. Labs Test 09/16/17 11:18 White Blood Count 9.9 K/UL (4.8-10.8) Red Blood Count 3.81 M/UL (4.20-5.40) Hemoglobin 10.5 G/DL (12.0-16.0) Hematocrit 33.7 % (37.0-47.0) Mean Corpuscular Volume 88 FL (80-99) Mean Corpuscular Hemoglobin 27.6 PG (27.0-31.0) Mean Corpuscular Hemoglobin Concent 31.2 G/DL (32.0-36.0) Red Cell Distribution Width 16.3 % (11.6-14.8) Platelet Count 308 K/UL (150-450) Mean Platelet Volume 8.0 FL (6.5-10.1) Neutrophils (%) (Auto) 44.3 % (45.0-75.0) Lymphocytes (%) (Auto) 46.6 % (20.0-45.0) Monocytes (%) (Auto) 4.5 % (1.0-10.0) Eosinophils (%) (Auto) 3.1 % (0.0-3.0) Basophils (%) (Auto) 1.5 % (0.0-2.0) Sodium Level 140 MMOL/L (136-145) Potassium Level 3.6 MMOL/L (3.5-5.1) Chloride Level 102 MMOL/L (98-107) Carbon Dioxide Level 30 MMOL/L (21-32) Anion Gap 8 mmol/L (5-15) Blood Urea Nitrogen 15 mg/dL (7-18) Creatinine 0.8 MG/DL (0.55-1.30) Estimat Glomerular Filtration Rate > 60 mL/min (>60) Glucose Level 121 MG/DL (74-106) Calcium Level 9.3 MG/DL (8.5-10.1) Total Bilirubin 0.5 MG/DL (0.2-1.0) Aspartate Amino Transf (AST/SGOT) 25 U/L (15-37) Alanine Aminotransferase (ALT/SGPT) 27 U/L (12-78) Alkaline Phosphatase 106 U/L (46-116) Total Creatine Kinase 131 U/L (26-308) Creatine Kinase MB 1.6 NG/ML (0.0-3.6) Creatine Kinase MB Relative Index 1.2 Troponin I 0.223 ng/mL (0.000-0.056) Pro-B-Type Natriuretic Peptide 1703 pg/mL (0-125) Total Protein 7.8 G/DL (6.4-8.2) Albumin 3.4 G/DL (3.4-5.0) Globulin 4.4 g/dL Albumin/Globulin Ratio 0.8 (1.0-2.7) EKG Diagnostic Results Rate: normal Rhythm: NSR ST Segments: no acute changes Rhythm Strip Diag. Results EP Interpretation: yes Rhythm: NSR, no PVC's, no ectopy Last Vital Signs Date Time Temp Pulse Resp B/P (MAP) Pulse Ox O2 Delivery O2 Flow Rate FiO2 09/16/17 12:07 75 21 Nasal Cannula 2.0 28 09/16/17 12:07 99 09/16/17 11:46 98.3 181/84 98.3 Status: improved [facility] Condition: Stable Isidoro Grove Sep 16, 2017 12:11
[2017-09-16] MEDS ORDERED: Morphine Sulfate 2mg/ml Inj IVP ONE (12:15)
--- NOTE | 2017-09-16 13:00 | Diagnostic Imaging Report ---
Indication: Dyspnea Comparison: 07/01/2017 A single view chest radiograph was obtained. Findings: Pulmonary vascular congestion is moderate and there is cardiomegaly. Bones are unremarkable. IMPRESSION: CHF
[2017-09-16 14:14] VITALS: BP 130/67
[2017-09-16 14:48] VITALS: BP 130/67
--- NOTE | 2017-09-24 16:20 | Cardiology Report ---
APPROVED REPORT EKG Measurement Heart [id number] Sinus rhythm with premature atrial complexes Nonspecific ST and T wave abnormality Abnormal ECG
== END 2017-09-16 14:50 | disposition short-term general hospital (02) ==
LOC: EDBD 10:48 → EMR 11:47 → EDBEDREQ 12:14 → EMR 14:50
DX: R07.9 Chest pain, unspecified (principal); I50.9 Heart failure, unspecified; J45.909 Unspecified asthma, uncomplicated; E11.9 Type 2 diabetes mellitus without complications; I10 Essential (primary) hypertension; K57.90 Diverticulosis of intestine, part unspecified, without perforation or abscess without bleeding
CPT/HCPCS: 36415; 71045; 80053; 82550; 82553; 83880; 84484; 85025; 86850; 86900; 86901; 93005; 94640; 94664; 96374; 96375; 99285; J1940; J2270; J7620

== ENCOUNTER 2017-10-07 19:38 | Emergency (ER) | payer OTHER ==
[~2017-10-07] VITALS: Ht 157.5 cm; Wt 127.0 kg
[2017-10-07] MEDS ORDERED: Ketorolac 30mg Inj IM ONE (20:30)
--- NOTE | 2017-10-07 20:40 | Emergency Room Report ---
History of Present Illness General Chief Complaint: Pain Present Illness HPI 62 yo female patient presents to ER complaining of butt pain and bilateral knee pain. Reports hx of chronic pain in knees and back. States back and butt pain does not radiate to knees. Reports was supposed to have bilateral knee surgery but lost insurance. Reports pain increased 3 days ago. Reports drove herself to ER. Reports pain with ambulation. Requesting MRI be performed. Reports took Rodman a few days ago, states pills sent to her by her sister. Reports previously received Rodman prescription for pain from primary care provider, reports insurance changed, no longer sees same doctor, unable to get refill of prescription. Patient complains of frequency. Denies dysuria, urgency, vaginal discharge. Denies radiation of pain. Denies fever, chest pain, SOB. Denies bowel or bladder incontinence. Denies hx of surgery. Denies hx of cancer or IVDA. Denies abdominal pain. Reports hx of CHF, HTN. Denies hx of DVT, PE. Denies calf pain or swelling. Denies skin changes or rash. Allergies: Coded Allergies: NO KNOWN ALLERGIES (Unverified Allergy, Unknown, 11/01/15) Patient History Past Medical History: see triage record Reviewed Nursing Documentation: PMH: Agreed; PSxH: Agreed Nursing Documentation-PMH Hx Hypertension: Yes Hx Asthma: Yes Hx Diabetes: Yes Hx Cancer: No Hx Gastrointestinal Problems: Yes - Diverticulitis Hx Neurological Problems: No Review of Systems All Other Systems: negative except mentioned in HPI Physical Exam Vital Signs Date Time Temp Pulse Resp B/P (MAP) Pulse Ox O2 Delivery O2 Flow Rate FiO2 10/07/17 19:56 98.1 113 16 133/78 97 Room Air 98.1 Sp02 EP Interpretation: reviewed, normal General Appearance: well appearing, no apparent distress, alert, GCS 15 Head: normocephalic, atraumatic Eyes: bilateral eye normal inspection, bilateral eye PERRL ENT: hearing grossly normal, normal pharynx, no angioedema, normal voice, uvula midline, moist mucus membranes Neck: full range of motion Respiratory: lungs clear, normal breath sounds, no rhonchi, no respiratory distress, no accessory muscle use, no wheezing, speaking full sentences Cardiovascular #1: regular rate, rhythm, no edema Cardiovascular #2: 2+ dorsalis pedis (R), 2+ dorsalis pedis (L) Gastrointestinal: non tender, soft, no mass, non-distended, no guarding, no rebound Genitourinary: no CVA tenderness Musculoskeletal: back normal, digits/nails normal, normal range of motion, non- tender, no calf tenderness, Theresa's Sign negative Neurologic: alert, oriented x3, responsive, motor strength/tone normal, SLR negative, sensory intact Psychiatric: mood/affect normal Skin: no rash Medical Decision Making PA Attestation Dr. Grove is my supervising Physician whom patient management has been discussed with. Diagnostic Impression: Primary Impression: Chronic pain of both knees Additional Impression: Buttock pain ER Course Pt presents to ED c/o butt pain and knee pain. DDX considered but are not limited to sprain, strain, cauda equine, epidural abscess, AAA, spinal cord compression, UTI. Low suspicion for cauda equina, no bowel or bladder incontinence or retention. No fever, nontoxic appearing, no radiation of pain, low suspicion for epidural mass. No abdominal pain, no blood pressure elevation, nontoxic appearing, low suspicion for AAA. No hemoptysis, cough, recent travel, calf swelling, low suspicion for DVT per Well's criteria. Informed patient MRI not performed in ER at this time, instructed to followup with PCP for imaging. No recent trauma, does not require imaging at this time. VITAL SIGNS are WNL, patient is afebrile. Elevation in BP and pulse, hx of HTN, take medication as directed, followup with primary care provider. May be slightly elevated due to pain, will recheck vitals. Ordered pain medication, UA. ER COURSE: Patient provided with Toradol and lidocaine patch. UA shows no nitrites, no WBC, no UTI, will not treat with abx. 0915PM Patient sleeping in bed, in no acute distress, nontoxic appearing. Patient requesting Dilaudid or morphine. Informed patient would not provide her with these medications. Informed patient would not provider her with opioid medication at discharge. Patient states that I am "lying" to her and "am racist." Patient accused Catherine of "hoarding Dilaudid" medication for personal use. Informed patient will discharge with Tylenol and Lidocaine patches. Needs to followup with primary care provider and/or pain management for further pain prescriptions. Patient discharged to home. Vitals within normal limits prior to discharge. Pulse 100, BP 158/99. Patient called me a "racist dope-fiblas" while leaving ER. DISCHARGE: -Rx provided for Tylenol -Rx provided for Lidocaine patch At this time pt. is stable for d/c to home. At this time patient is resting comfortably, in no acute distress, nontoxic appearing, smiling and talking without difficulty. Will provide printed patient care instructions, and any necessary prescriptions. Patient instructed to follow with primary care provider for further treatment and referral as needed. Care plan and follow up instructions have been discussed with the patient prior to discharge. Patient reports understanding and agreement to treatment plan. Patient questions asked and answered. ER precautions given, patient instructed to return to ER immediately for any new or worsening of symptoms. Labs Test 10/07/17 21:07 Urine Color Yellow Urine Appearance Clear Urine pH 5 (4.5-8.0) Urine Specific [address] 1.020 (1.005-1.035) Urine Protein 1+ (NEGATIVE) Urine Glucose (UA) Negative (NEGATIVE) Urine Ketones Negative (NEGATIVE) Urine Occult Blood 1+ (NEGATIVE) Urine Nitrite Negative (NEGATIVE) Urine Bilirubin Negative (NEGATIVE) Urine Urobilinogen Normal MG/DL (0.0-1.0) Urine Leukocyte Esterase Negative (NEGATIVE) Urine RBC 0-2 /HPF (0 - 2) Urine WBC 0 /HPF (0 - 2) Urine Squamous Epithelial Cells Occasional /LPF Urine Bacteria Occasional /HPF (NONE) Disposition: HOME, SELF-CARE Condition: Stable Scripts Lidocaine (Lidocaine) 1 Each Adh..patch 700 MG TP DAILY for 7 Days, #7 PATCH Prov: Aureliano Leslie 10/07/17 Acetaminophen* (TYLENOL EXTRA STRENGTH*) 500 Mg Tablet 500 MG ORAL Q8H PRN for Prn Headache/Temp > 101, #30 TAB 0 Refills Prov: Aureliano Leslie 10/07/17 Referrals: [facility],REFERRING (PCP) Patient Instructions: Chronic Pain, Knee Pain, [id number], Sciatica, Easy-to- Read Additional Instructions: Followup with primary care provider in 3 -5 days. Take medications as directed. Patient questions asked and answered. ER precautions given, patient instructed to return to ER immediately for any new or worsening of symptoms. Aureliano Leslie Oct 07, 2017 20:40
[2017-10-07 20:56] VITALS: BP 146/87
[2017-10-07 21:30] LABS: APPEARANCE,URINE CLEAR; BILIRUBIN, URINE NEGATIVE (NEGATIVE); GLUCOSE, URINE (UA) NEGATIVE (NEGATIVE); KETONES,URINE NEGATIVE (NEGATIVE); LEUKOCYTE ESTERASE ,URINE NEGATIVE (NEGATIVE); NITRITE,URINE NEGATIVE (NEGATIVE); PH,URINE 5 (4.5-8.0); PROTEIN,URINE 1+ (NEGATIVE); UROBILINOGEN,URINE NORMAL MG/DL (0.0-1.0)
[2017-10-07 21:31] LABS: COLOR,URINE YELLOW
[2017-10-07] MEDS ORDERED: TYLENOL EXTRA500 MG ORAL (21:47)
[2017-10-07] MEDS ORDERED: LIDOCAINE700 M1 TP (21:47)
[2017-10-07 22:27] VITALS: BP 140/88
== END 2017-10-07 22:29 | disposition home or self-care (01) ==
LOC: EMR 20:22
DX: M25.562 Pain in left knee (principal); M25.561 Pain in right knee; G89.29 Other chronic pain; M54.5 Low back pain; I10 Essential (primary) hypertension; E11.9 Type 2 diabetes mellitus without complications; J45.909 Unspecified asthma, uncomplicated
CPT/HCPCS: 81003; 96372; 99284; J1885

== ENCOUNTER 2017-12-11 10:40 | Emergency (ER) | payer OTHER ==
[~2017-12-11] VITALS: Ht 165.1 cm; Wt 115.7 kg
[~2017-12-11 10:40] MED LIST changes: +LIDOCAINE700 M1 TP; +TYLENOL EXTRA500 MG ORAL
[2017-12-11 10:48] VITALS: BP 178/90
[2017-12-11] MEDS ORDERED: HYDROcodone/Acetamin 10/325 tab ORAL ONE (11:30)
--- NOTE | 2017-12-11 11:33 | Emergency Room Report ---
History of Present Illness General Chief Complaint: Abdominal Pain Source: Patient Present Illness HPI Patient presents with complaints of left flank pain Increased urination Patient reports that this happened recently Denies any chest pain or shortness of breath denies any vomiting or diarrhea Denies any focal weakness Patient has had recent hospitalization for nonspecific chest pain Reports taking diuretics Denies any fevers denies any diarrhea Allergies: Coded Allergies: NO KNOWN ALLERGIES (Unverified Allergy, Unknown, 11/01/15) Patient History Past Medical History: see triage record Pertinent Family History: none Now: No Reviewed Nursing Documentation: PMH: Agreed; PSxH: Agreed Nursing Documentation-PMH Hx Hypertension: Yes Hx Asthma: Yes Hx Diabetes: Yes Hx Cancer: No Hx Gastrointestinal Problems: Yes - Diverticulitis Hx Neurological Problems: No Review of Systems All Other Systems: negative except mentioned in HPI Physical Exam Vital Signs Date Time Temp Pulse Resp B/P (MAP) Pulse Ox O2 Delivery O2 Flow Rate FiO2 12/11/17 10:38 98.6 78 16 190/110 98 Room Air 98.6 Sp02 EP Interpretation: reviewed, normal General Appearance: well appearing, no apparent distress Head: normocephalic, atraumatic Eyes: bilateral eye PERRL, bilateral eye EOMI ENT: hearing grossly normal, normal pharynx, TMs + canals normal, uvula midline Neck: full range of motion, supple, no meningismus, no bony tend Respiratory: lungs clear, normal breath sounds, no rhonchi, no respiratory distress, no retraction, no accessory muscle use Cardiovascular #1: normal peripheral pulses, regular rate, rhythm, no edema, no gallop, no JVD, no murmur Gastrointestinal: normal bowel sounds, non tender, soft, no mass, no organomegaly, non-distended, no guarding, no hernia, no pulsatile mass, no rebound Genitourinary: no CVA tenderness Musculoskeletal: normal inspection Neurologic: oriented x3, responsive, human services instructor III-XII nml as tested, motor strength/ tone normal, sensory intact Psychiatric: mood/affect normal Skin: normal color, no rash, warm/dry, palpation normal Lymphatic: normal inspection, no adenopathy Medical Decision Making Diagnostic Impression: Primary Impression: Abdominal pain Additional Impression: Diverticulitis ER Course With the history exam and presentation, multiple differentials considered, including but not limited to appendicitis, gastritis, cholecystitis, diverticulitis Patient's CT imaging shows questionable mild diverticulitis White blood cell count is normal patient has done well throughout her stay At this time patient is candidate for initial conservative outpatient trial and will return with any worsening symptoms Labs Test 12/11/17 11:35 12/11/17 11:40 Urine Color Pale yellow Urine Appearance Clear Urine pH 7 (4.5-8.0) Urine Specific [place] 1.010 (1.005-1.035) Urine Protein 1+ (NEGATIVE) Urine Glucose (UA) Negative (NEGATIVE) Urine Ketones Negative (NEGATIVE) Urine Occult Blood Negative (NEGATIVE) Urine Nitrite Negative (NEGATIVE) Urine Bilirubin Negative (NEGATIVE) Urine Urobilinogen Normal MG/DL (0.0-1.0) Urine Leukocyte Esterase Negative (NEGATIVE) Urine RBC 0-2 /HPF (0 - 2) Urine WBC 0-2 /HPF (0 - 2) Urine Squamous Epithelial Cells Few /LPF (NONE/OCC) Urine Bacteria Few /HPF (NONE) White Blood Count 10.5 K/UL (4.8-10.8) Red Blood Count 4.02 M/UL (4.20-5.40) Hemoglobin 10.6 G/DL (12.0-16.0) Hematocrit 34.8 % (37.0-47.0) Mean Corpuscular Volume 87 FL (80-99) Mean Corpuscular Hemoglobin 26.4 PG (27.0-31.0) Mean Corpuscular Hemoglobin Concent 30.5 G/DL (32.0-36.0) Red Cell Distribution Width 15.9 % (11.6-14.8) Platelet Count 292 K/UL (150-450) Mean Platelet Volume 9.4 FL (6.5-10.1) Neutrophils (%) (Auto) 48.0 % (45.0-75.0) Lymphocytes (%) (Auto) 43.1 % (20.0-45.0) Monocytes (%) (Auto) 5.5 % (1.0-10.0) Eosinophils (%) (Auto) 1.8 % (0.0-3.0) Basophils (%) (Auto) 1.7 % (0.0-2.0) Sodium Level 139 MMOL/L (136-145) Potassium Level 3.8 MMOL/L (3.5-5.1) Chloride Level 103 MMOL/L (98-107) Carbon Dioxide Level 26 MMOL/L (21-32) Anion Gap 10 mmol/L (5-15) Blood Urea Nitrogen 16 mg/dL (7-18) Creatinine 0.8 MG/DL (0.55-1.30) Estimat Glomerular Filtration Rate > 60 mL/min (>60) Glucose Level 121 MG/DL (74-106) Calcium Level 9.4 MG/DL (8.5-10.1) CT/MRI/US Diagnostic Results CT/MRI/US Diagnostic Results : Impression CT abdomen pelvisIMPRESSION: Suspicion of mild acute diverticulitis involving the sigmoid region. Correlate clinically. Normal appendix. Other incidental findings as described above Last Vital Signs Date Time Temp Pulse Resp B/P (MAP) Pulse Ox O2 Delivery O2 Flow Rate FiO2 12/11/17 10:48 97.8 67 15 178/90 100 Room Air 97.8 Status: improved Disposition: HOME, SELF-CARE Condition: Improved Scripts Hydrocodone Bit/Acetaminophen 5-325* (NORCO 5-325*) 1 Each Tablet 1 TAB ORAL Q6H PRN for For Pain, #12 TAB 0 Refills Prov: Yuliet Ramirez DO 12/11/17 Metronidazole* (FLAGYL*) 500 Mg Tablet 500 MG ORAL THREE TIMES A DAY, #30 TAB Prov: Yuliet Ramirez DO 12/11/17 Levofloxacin* (LEVAQUIN*) 500 Mg Tablet 500 MG ORAL DAILY, #10 TAB Prov: Yuliet Ramirez DO 12/11/17 Additional Instructions: Patient is provided with the discharge instructions notified to follow up with primary doctor in the next 2-3 days otherwise return to the er with any worsening symptoms. Please note that this report is being documented using [employer] technology. This can lead to erroneous entry secondary to incorrect interpretation by the dictating instrument. Yuliet Ramirez DO December 11, 2017 11:33
[2017-12-11 12:05] LABS: BASOPHILS % (AUTO) 1.7 % (0.0-2.0); EOSINOPHILS % (AUTO) 1.8 % (0.0-3.0); HEMATOCRIT 34.8 % (37.0-47.0); HEMOGLOBIN 10.6 G/DL (12.0-16.0); LYMPHOCYTES % (AUTO) 43.1 % (20.0-45.0); MEAN CORPUSCULAR VOLUME 87 FL (80-99); MONOCYTES % (AUTO) 5.5 % (1.0-10.0); PLATELET COUNT 292 K/UL (150-450); RED BLOOD COUNT 4.02 M/UL (4.20-5.40); RED CELL DISTRIBUTION WIDTH 15.9 % (11.6-14.8); WHITE BLOOD COUNT 10.5 K/UL (4.8-10.8)
[2017-12-11 12:05] LABS: APPEARANCE,URINE CLEAR; BILIRUBIN, URINE NEGATIVE (NEGATIVE); COLOR,URINE PALE YELLOW; GLUCOSE, URINE (UA) NEGATIVE (NEGATIVE); KETONES,URINE NEGATIVE (NEGATIVE); LEUKOCYTE ESTERASE ,URINE NEGATIVE (NEGATIVE); NITRITE,URINE NEGATIVE (NEGATIVE); PH,URINE 7 (4.5-8.0); PROTEIN,URINE 1+ (NEGATIVE); UROBILINOGEN,URINE NORMAL MG/DL (0.0-1.0)
--- NOTE | 2017-12-11 12:43 | Diagnostic Imaging Report ---
Indication: Abdominal pain Technique: Continuous helical transaxial imaging of the abdomen and pelvis was obtained from the lung bases to the pubic symphysis. No intravenous contrast was administered. Coronal 2-D reformats were also obtained. Automatic Exposure Control was utilized. Total Dose length Product (DLP): 1027.[address] Dose Index Volume (CTDIvol): 19.75 mGy Comparison: 01/19/2015 Findings: The heart is enlarged. The lung bases are clear. The study is limited by the lack of intravenous contrast and oral contrast not given for this study. There is no hydronephrosis. No nephrolithiasis demonstrated. There is a questionable diverticulitis in the sigmoid region with suggestion of mild perisigmoid inflammation. There are diverticula noted within the colon. There is no evidence of acute appendicitis. The appendix is normal in appearance. No evidence of bowel obstruction. There is a small umbilical hernia containing fat. Moderate arterial calcifications are present. There is no free fluid or free air. The urinary bladder is unremarkable. Uterus noted. IMPRESSION: Suspicion of mild acute diverticulitis involving the sigmoid region. Correlate clinically. Normal appendix. Other incidental findings as described above The CT scanner at [facility] is accredited by the [employer] and the scans are performed using dose optimization techniques as appropriate to a performed exam including Automatic Exposure control.
[2017-12-11] MEDS ORDERED: Levofloxacin 500mg tab ORAL ONE (13:00)
[2017-12-11] MEDS ORDERED: metroNIDAZOLE 500mg tab ORAL ONE (13:00)
[2017-12-11 13:12] LABS: ANION GAP 10 mmol/L (5-15); BLOOD UREA NITROGEN 16 mg/dL (7-18); CALCIUM 9.4 MG/DL (8.5-10.1); CARBON DIOXIDE 26 MMOL/L (21-32); CHLORIDE 103 MMOL/L (98-107); CREATININE 0.8 MG/DL (0.55-1.30); POTASSIUM 3.8 MMOL/L (3.5-5.1); SODIUM 139 MMOL/L (136-145)
[2017-12-11] MEDS ORDERED: METRONIDAZOLE500 MG ORAL (13:49)
[2017-12-11] MEDS ORDERED: NORCO 5-325 TA1 EACH ORAL (13:49)
[2017-12-11] MEDS ORDERED: LEVAQUIN500 MG ORAL (13:49)
[2017-12-11 14:22] VITALS: BP 161/83
== END 2017-12-11 14:22 | disposition home or self-care (01) ==
LOC: EDBD 10:40 → EMR 11:42
DX: K57.32 Diverticulitis of large intestine without perforation or abscess without bleeding (principal); I10 Essential (primary) hypertension; E11.9 Type 2 diabetes mellitus without complications; J45.909 Unspecified asthma, uncomplicated
CPT/HCPCS: 36415; 74176; 80048; 81003; 85025; 99284

== ENCOUNTER 2017-12-25 03:04 | Emergency (ER) | payer OTHER ==
[~2017-12-25] VITALS: Ht 157.5 cm; Wt 129.3 kg
[~2017-12-25 03:04] MED LIST changes: +LEVAQUIN500 MG ORAL
[2017-12-25 03:25] VITALS: BP 194/97
--- NOTE | 2017-12-25 03:25 | Emergency Room Report ---
History of Present Illness General Chief Complaint: Chest Pain Source: Patient, EMS Present Illness HPI Is a 62-year-old female with history of chronic pain. She also has history of high blood pressure and CHF and obesity. She present with chief complaint of shortness of breath. Also complaining of chest pain. Onset tonight. No nausea no vomiting. [place] like she can't breathe. No fever chills but no nausea no vomiting per no syncope. EMS gave her aspirin and nitroglycerin without much relief. She was seen here on December 11 for mild diverticulitis. She then had some rectal bleeding and admitted to [place] for about a week. She just got discharged. Allergies: Coded Allergies: NO KNOWN ALLERGIES (Unverified Allergy, Unknown, 11/01/15) Patient History Past Medical History: see triage record, old chart reviewed, HTN, CHF Past Surgical History: other Pertinent Family History: none Social History: Denies: smoking Now: No Immunizations: other Reviewed Nursing Documentation: PMH: Agreed; PSxH: Agreed Nursing Documentation-PMH Hx Cardiac Problems: Yes - CHF Hx Hypertension: Yes Hx Asthma: Yes Hx Diabetes: Yes Hx Cancer: No Hx Gastrointestinal Problems: Yes - Diverticulitis Hx Neurological Problems: No Review of Systems Eye: Denies: eye pain, blurred vision ENT: Denies: ear pain, nose congestion, throat swelling Respiratory: Reports: shortness of breath; Denies: cough Cardiovascular: Reports: chest pain; Denies: palpitations Gastrointestinal: Denies: abdominal pain, diarrhea, nausea, vomiting Musculoskeletal: Denies: back pain, joint pain Skin: Denies: rash Neurological: Denies: headache, numbness Endocrine: Denies: increased thirst, increased urine Hematologic/Lymphatic: Denies: easy bruising All Other Systems: negative except mentioned in HPI Physical Exam Vital Signs Date Time Temp Pulse Resp B/P (MAP) Pulse Ox O2 Delivery O2 Flow Rate FiO2 12/25/17 03:00 97.4 63 18 194/97 97 Room Air 97.3 vitals with high blood pressure Sp02 EP Interpretation: reviewed, normal General Appearance: well appearing, no apparent distress, alert, obese Head: normocephalic, atraumatic Eyes: bilateral eye PERRL, bilateral eye EOMI ENT: hearing grossly normal, normal pharynx Neck: full range of motion, supple, no meningismus Respiratory: chest non-tender, lungs clear, normal breath sounds Cardiovascular #1: regular rate, rhythm, no murmur Gastrointestinal: normal bowel sounds, non tender, no mass, no organomegaly, no bruit, non-distended Musculoskeletal: back normal, gait/station normal, normal range of motion Psychiatric: mood/affect normal Skin: warm/dry Medical Decision Making Diagnostic Impression: Primary Impression: ACS (acute coronary syndrome) Additional Impressions: Acute exacerbation of CHF (congestive heart failure) Qualified Codes: I50.9 - Heart failure, unspecified Morbid obesity Anemia Qualified Codes: D64.9 - Anemia, unspecified Proteinuria Qualified Codes: R80.9 - Proteinuria, unspecified ER Course Patient present with chest pain with intermediate troponin. No evidence of acute changes on EKG. He is pain-free now. We'll repeat opponent. Initially, I discussed the case with Dr. Alfonso regarding transfer to [facility]. He preferred that she goes to a higher level care in case they have to do angiogram. Will call her insurance back to arrange for different hospital. If unable to transger, will admit here. Laboratory Tests Test 12/25/17 03:15 12/25/17 04:20 White Blood Count 13.8 K/UL (4.8-10.8) H Red Blood Count 3.96 M/UL (4.20-5.40) L Hemoglobin 10.1 G/DL (12.0-16.0) L Hematocrit 32.7 % (37.0-47.0) L Mean Corpuscular Volume 82 FL (80-99) Mean Corpuscular Hemoglobin 25.4 PG (27.0-31.0) L Mean Corpuscular Hemoglobin Concent 30.8 G/DL (32.0-36.0) L Red Cell Distribution Width 19.1 % (11.6-14.8) H Platelet Count 338 K/UL (150-450) Mean Platelet Volume 7.6 FL (6.5-10.1) Neutrophils (%) (Auto) 47.2 % (45.0-75.0) Lymphocytes (%) (Auto) 42.8 % (20.0-45.0) Monocytes (%) (Auto) 8.0 % (1.0-10.0) Eosinophils (%) (Auto) 0.5 % (0.0-3.0) Basophils (%) (Auto) 1.5 % (0.0-2.0) Sodium Level 140 MMOL/L (136-145) Potassium Level 3.2 MMOL/L (3.5-5.1) L Chloride Level 103 MMOL/L (98-107) Carbon Dioxide Level 28 MMOL/L (21-32) Anion Gap 9 mmol/L (5-15) Blood Urea Nitrogen 18 mg/dL (7-18) Creatinine 1.2 MG/DL (0.55-1.30) Estimat Glomerular Filtration Rate 54.9 mL/min (>60) Glucose Level 127 MG/DL (74-106) H Calcium Level 8.7 MG/DL (8.5-10.1) Total Bilirubin 0.5 MG/DL (0.2-1.0) Aspartate Amino Transf (AST/SGOT) 26 U/L (15-37) Alanine Aminotransferase (ALT/SGPT) 25 U/L (12-78) Alkaline Phosphatase 62 U/L (46-116) Total Creatine Kinase 160 U/L (26-308) Creatine Kinase MB 1.1 NG/ML (0.0-3.6) Creatine Kinase MB Relative Index 0.6 Troponin I 0.133 ng/mL (0.000-0.056) Pro-B-Type Natriuretic Peptide 4588 pg/mL (0-125) H Total Protein 7.6 G/DL (6.4-8.2) Albumin 3.4 G/DL (3.4-5.0) Globulin 4.2 g/dL Albumin/Globulin Ratio 0.8 (1.0-2.7) L Urine Color Pale yellow Urine Appearance Clear Urine pH 6 (4.5-8.0) Urine Specific [place] 1.010 (1.005-1.035) Urine Protein 2+ (NEGATIVE) H Urine Glucose (UA) Negative (NEGATIVE) Urine Ketones Negative (NEGATIVE) Urine Occult Blood Negative (NEGATIVE) Urine Nitrite Negative (NEGATIVE) Urine Bilirubin Negative (NEGATIVE) Urine Urobilinogen Normal MG/DL (0.0-1.0) Urine Leukocyte Esterase Negative (NEGATIVE) Urine RBC 0-2 /HPF (0 - 2) Urine WBC 0 /HPF (0 - 2) Urine Squamous Epithelial Cells Few /LPF (NONE/OCC) Urine Bacteria None /HPF (NONE) Lab Results Impression labs with intermediate troponin and elevated BNP EKG Diagnostic Results Rate: normal Rhythm: NSR ST Segments: other - NSST changes Rhythm Strip Diag. Results Rhythm Strip Time: 03:25 EP Interpretation: yes Rate: 64 Rhythm: NSR, no PVC's, no ectopy Chest X-Ray Diagnostic Results Chest X-Ray Diagnostic Results : Chest X-Ray Ordered: Yes # of Views/Limited/Complete: 1 View Indication: Chest Pain EP Interpretation: Yes Interpretation: no effusion, no pneumothorax, other - CM Impression: Other - CM with vasc congestion Electronically Signed by: Cezar Delgado MD Last Vital Signs Date Time Temp Pulse Resp B/P (MAP) Pulse Ox O2 Delivery O2 Flow Rate FiO2 12/25/17 03:00 97.4 63 18 194/97 97 Room Air 97.3 Status: improved Disposition: XFER T-REPLACED BY [facility] Condition: Stable CEZAR DELGADO M.D. Dec 25, 2017 03:25
[2017-12-25 03:52] LABS: BASOPHILS % (AUTO) 1.5 % (0.0-2.0); EOSINOPHILS % (AUTO) 0.5 % (0.0-3.0); HEMATOCRIT 32.7 % (37.0-47.0); HEMOGLOBIN 10.1 G/DL (12.0-16.0); LYMPHOCYTES % (AUTO) 42.8 % (20.0-45.0); MEAN CORPUSCULAR VOLUME 82 FL (80-99); NEUTROPHILS % (AUTO) 47.2 % (45.0-75.0); PLATELET COUNT 338 K/UL (150-450); RED BLOOD COUNT 3.96 M/UL (4.20-5.40); RED CELL DISTRIBUTION WIDTH 19.1 % (11.6-14.8); WHITE BLOOD COUNT 13.8 K/UL (4.8-10.8)
[2017-12-25 03:57] LABS: ANION GAP 9 mmol/L (5-15); BLOOD UREA NITROGEN 18 mg/dL (7-18); CALCIUM 8.7 MG/DL (8.5-10.1); CARBON DIOXIDE 28 MMOL/L (21-32); CHLORIDE 103 MMOL/L (98-107); CREATININE 1.2 MG/DL (0.55-1.30); POTASSIUM 3.2 MMOL/L (3.5-5.1); SODIUM 140 MMOL/L (136-145)
[2017-12-25] MEDS ORDERED: Tylenol #3 tab (300mg/30mg) ORAL ONE (04:00)
[2017-12-25 04:10] LABS: ALANINE AMINOTRANSFERASE 25 U/L (12-78); ALBUMIN 3.4 G/DL (3.4-5.0); ALBUMIN/GLOBULIN RATIO 0.8 (1.0-2.7); ALKALINE PHOSPHATASE 62 U/L (46-116); ASPARTATE AMINO TRANSFERASE 26 U/L (15-37); BILIRUBIN,TOTAL 0.5 MG/DL (0.2-1.0); CKMB 1.1 NG/ML (0.0-3.6); CREATINE KINASE 160 U/L (26-308)
[2017-12-25 04:25] VITALS: BP 147/51
[2017-12-25 04:34] LABS: APPEARANCE,URINE CLEAR; BILIRUBIN, URINE NEGATIVE (NEGATIVE); COLOR,URINE PALE YELLOW; GLUCOSE, URINE (UA) NEGATIVE (NEGATIVE); KETONES,URINE NEGATIVE (NEGATIVE); LEUKOCYTE ESTERASE ,URINE NEGATIVE (NEGATIVE); NITRITE,URINE NEGATIVE (NEGATIVE); PH,URINE 6 (4.5-8.0); PROTEIN,URINE 2+ (NEGATIVE); UROBILINOGEN,URINE NORMAL MG/DL (0.0-1.0)
[2017-12-25 05:25] VITALS: BP 122/56
[2017-12-25 06:25] VITALS: BP 118/58
[2017-12-25 06:40] VITALS: BP 118/60
--- NOTE | 2017-12-25 14:38 | Diagnostic Imaging Report ---
Indication: Shortness of breath Technique: One view of the chest Comparison: 09/16/2017 Findings: Body habitus limits evaluation. Again demonstrated is bilateral interstitial edema, appearing slightly less extensive than on the prior study. The heart is enlarged Impression: Cardiomegaly Bilateral interstitial edema
--- NOTE | 2017-12-27 12:18 | Cardiology Report ---
APPROVED REPORT EKG Measurement Heart [id number] Sinus rhythm with occasional premature ventricular complexes Anterior infarct, age undetermined Abnormal ECG
== END 2017-12-25 06:40 | disposition short-term general hospital (02) ==
LOC: EDBD 03:04 → EMR 03:17 → EDBEDREQ 04:44 → EMR 06:40
DX: I24.9 Acute ischemic heart disease, unspecified (principal); E66.01 Morbid (severe) obesity due to excess calories; Z68.43 Body mass index [BMI] 50.0-59.9, adult; D64.9 Anemia, unspecified; R80.9 Proteinuria, unspecified; I11.0 Hypertensive heart disease with heart failure; J45.909 Unspecified asthma, uncomplicated; E11.9 Type 2 diabetes mellitus without complications; I50.9 Heart failure, unspecified
CPT/HCPCS: 36415; 71045; 80053; 81003; 82550; 82553; 83880; 84484; 85025; 93005; 96374; 96375; 99284; J1940; J2405

== ENCOUNTER 2018-03-23 11:32 | Emergency (ER) | payer OTHER ==
[~2018-03-23] VITALS: Ht 162.6 cm; Wt 117.9 kg
[2018-03-23 12:00] VITALS: BP 161/78
[2018-03-23] MEDS ORDERED: Ketorolac 30mg Inj IM ONE (12:00)
[2018-03-23] MEDS ORDERED: Norco 5mg/325mg tab PO ONE (12:00)
[2018-03-23] MEDS ORDERED: ACETAMINOPHEN-1 EAC1 ORAL (12:57)
[2018-03-23 13:08] VITALS: BP 145/66
--- NOTE | 2018-03-23 13:47 | Diagnostic Imaging Report ---
Indication: Knee pain Technique: 3 views of the left knee Comparison: None Findings: Positioning is suboptimal; patient left before exam could be repeated. There is degenerative narrowing of the patellofemoral joint compartment, degenerative proliferative changes of the medial lateral compartments. No definite acute fractures. No dislocations. No definite suprapatellar effusion. Impression: Degenerative changes. No definite acute bony trauma
--- NOTE | 2018-03-23 16:36 | Diagnostic Imaging Report ---
Indication: Knee pain Technique: 3 views of the right knee Comparison: None Findings:Positioning is somewhat limited. There is degenerative change and degenerative remodeling of the medial joint compartment. There are osteophytes. No definite acute fractures. No dislocations. There are also degenerative changes of the patellofemoral joint. Impression: Degenerative changes, as described No definite acute bony trauma
--- NOTE | 2018-03-25 14:20 | Emergency Room Report ---
History of Present Illness General Chief Complaint: Pain Source: Patient Present Illness HPI 62-year-old female presents ED complaining of bilateral knee pain. States she' s had this pain for many years. But worse in the last week. Pain is throbbing , 10 out of 10, nonradiating. Denies any recent injury. States she's taking diclofenac prescribed to her without significant relief. No other aggravating relieving factors. Denies any other associated symptoms Allergies: Coded Allergies: NO KNOWN ALLERGIES (Unverified Allergy, Unknown, 11/01/15) Patient History Past Medical History: DM, CHF, asthma, other - diverticulitis Past Surgical History: none Pertinent Family History: none Social History: Denies: smoking, alcohol use, drug use Now: No Immunizations: UTD Reviewed Nursing Documentation: PMH: Agreed; PSxH: Agreed Nursing Documentation-PMH Past Medical History: No History, Except For Hx Cardiac Problems: Yes - CHF Hx Hypertension: Yes Hx Asthma: Yes Hx Diabetes: Yes Hx Cancer: No Hx Gastrointestinal Problems: Yes - Diverticulitis Hx Neurological Problems: No Review of Systems All Other Systems: negative except mentioned in HPI Physical Exam Vital Signs Date Time Temp Pulse Resp B/P (MAP) Pulse Ox O2 Delivery O2 Flow Rate FiO2 03/23/18 11:44 98.2 64 16 161/78 94 Room Air 98.2 Sp02 EP Interpretation: reviewed, normal General Appearance: no apparent distress, alert, GCS 15, non-toxic, obese Head: normocephalic Eyes: bilateral eye normal inspection, bilateral eye PERRL ENT: normal ENT inspection Neck: normal inspection Respiratory: normal inspection Cardiovascular #1: normal inspection Gastrointestinal: normal inspection Rectal: deferred Genitourinary: no CVA tenderness Musculoskeletal: normal range of motion, tender - bilateral knee Neurologic: alert, oriented x3, responsive, motor strength/tone normal, sensory intact, speech normal Psychiatric: normal inspection Skin: normal inspection Lymphatic: normal inspection Medical Decision Making Diagnostic Impression: Primary Impression: Chronic pain of both knees ER Course Hospital Course 62-year-old F presents to ED complaining of bilateral knee pain Differential diagnoses include: Fracture, dislocation, sprain, contusion Clinical course Patient placed on stretcher. After initial history and physical, I ordered pain medications and Xrays of bilateral knees X-ray shows significant DJD, no acute fracture. Reviewed CURES and EMR. Patient has been here multiple times in the past requesting Dilaudid shot. I explained to patient this pain is chronic. She needs to follow-up with orthopedics. i will provide referral Diagnosis - chronic pain in both knees Stable and discharged to home with prescription for Tylenol #3. apply ice, keep elevated. weight bear as tolerated. Followup with ortho. Return to ED if symptoms recur or worsen Other X-Ray Diagnostic Results Other X-Ray Diagnostic Results #1: X-Ray ordered: Right knee # of Views/Limited Vs Complete: 3 View Indication: Pain EP Interpretation: Yes Interpretation: no dislocation, no soft tissue swelling, no fractures, other - DJD Impression: Other - DJD Electronically Signed by: Electronically signed by Keegan Huber MD Other X-Ray Diagnostic Results #2: X-Ray ordered: Left knee # of Views/Limited Vs Complete: 3 View Indication: Pain EP Interpretation: Yes Interpretation: no dislocation, no soft tissue swelling, no fractures, other - DJD Impression: Other - DJD Electronically Signed by: Electronically signed by Keegan Huber MD Last Vital Signs Date Time Temp Pulse Resp B/P (MAP) Pulse Ox O2 Delivery O2 Flow Rate FiO2 03/23/18 13:08 97.9 74 20 145/66 98 Room Air 97.9 Status: improved Disposition: HOME, SELF-CARE Condition: Stable Scripts Acetaminophen With Codeine (T#3) (TYLENOL #3 TAB*) Y Tab 1 TAB ORAL Q8H PRN for For Pain, #20 TAB Prov: Keegan Huber MD 03/23/18 Referrals: [facility],REFERRING (PCP) Patient Instructions: Arthritis, [id number] Keegan Huber MD Mar 25, 2018 14:20
== END 2018-03-23 13:08 | disposition home or self-care (01) ==
LOC: EMR 12:00
DX: M25.562 Pain in left knee (principal); M25.561 Pain in right knee; G89.29 Other chronic pain; I11.0 Hypertensive heart disease with heart failure; I50.9 Heart failure, unspecified; E11.9 Type 2 diabetes mellitus without complications; J45.909 Unspecified asthma, uncomplicated
CPT/HCPCS: 73562; 96374; 99284; J1885